=== PATIENT | male | born 1945 ===

== ENCOUNTER 2017-01-16 08:54 | Emergency (ER) | payer OTHER ==
[2017-01-16 09:04] VITALS: RESP 16; TEMP 98
--- NOTE | 2017-01-16 09:48 | C.PDOC ---
History Of Present Illness 71 yo male, presnets with right ear pain x 4 days. pt states started w/o inciting factor. no fevers, cough sore throat or other complaints. Time Seen by Provider: 01/16/17 09:38 Chief Complaint (Nursing): ENT Problem Past Medical History Reviewed: Historical Data, Nursing Documentation, Vital Signs Vital Signs: Last Vital Signs Temp 98 F 01/16/17 09:02 Pulse 63 01/16/17 09:02 Resp 16 01/16/17 09:02 BP 159/56 H 01/16/17 09:02 Pulse Ox 99 01/16/17 09:02 - Medical History PMH: Benign Prostatic Hyperplasia, HTN, Hypercholesterolemia Family History: States: Unknown Family Hx - Social History Hx Tobacco Use: No Hx Alcohol Use: Yes Hx Substance Use: No - Immunization History Hx Tetanus Toxoid Vaccination: Yes Hx Influenza Vaccination: Yes Hx Pneumococcal Vaccination: Yes Review Of Systems ENT: Positive for: Ear Pain (right) Physical Exam - Physical Exam Appears: Well, No Acute Distress Skin: Normal Color, Warm, Dry Eye(s): bilateral: Normal Inspection, PERRL, EOMI Ear(s): Right: TM Dull, Other (external canal mild erythema) Nose: Normal Throat: Normal Neck: Normal Cardiovascular: Rhythm Regular Respiratory: Normal Breath Sounds Gastrointestinal/Abdominal: Normal Exam Back: Normal Inspection Extremity: Normal ROM ED Course And Treatment O2 Sat by Pulse Oximetry: 99 Medical Decision Making Medical Decision Making: om/externa. no mastoid ttp. well appearing. advise outpt f/u Disposition - Disposition Disposition: HOME/ ROUTINE Disposition Time: 09:47 Condition: STABLE Prescriptions: Amoxicillin [Amoxil 500 mg Cap] 500 mg PO TID #21 cap Ciprofloxacin/Hydrocortisone [Cipro Hc Otic Suspension] 3 drop TOP BID #1 drops.susp Instructions: Otitis Media (ED), Otitis Externa (ED) Print Language: BELIZEAN - Clinical Impression Clinical Impression: Otitis media, Otitis externa
[2017-01-16 10:00] VITALS: BP 142/83; PULSE 78; O2SAT 98
== END 2017-01-16 09:59 | disposition home or self-care (01) ==
LOC: C.ER 08:54
DX: H66.91 Otitis media, unspecified, right ear (principal); H60.91 Unspecified otitis externa, right ear

== ENCOUNTER 2018-07-15 11:33 | Emergency (ER) | payer MEDICARE, MEDICAID ==
[2018-07-15 11:44] VITALS: TEMP 97.6
--- NOTE | 2018-07-15 12:06 | C.PDOC ---
History Of Present Illness 73 year old male, whose past medical history includes hypertension and hyperlipidemia (on Xarelto for unknown reason), presents to the ED for evaluation of cough and nasal congestion which began 3 days ago. states he is "sob due to nasal congesiton" in er pt speaking full sentneces in nad, sating well. Patient reports his cough has been productive of brown sputum. He denies fever. Additional history limited secondary to patient being a poor historian. Time Seen by Provider: 07/15/18 11:55 Chief Complaint (Nursing): Shortness Of Breath History Per: Patient History/Exam Limitations: other (poor historian ) Onset/Duration Of Symptoms: Days (3) Current Symptoms Are (Timing): Still Present Exacerbating Factor(s): Coughing Current Respiratory Medications: See Home Med List Associated Symptoms: Productive Cough (brown sputum ). denies: Fever Additional History Per: Patient Past Medical History Reviewed: Historical Data, Nursing Documentation, Vital Signs Vital Signs: Last Vital Signs Temp 97.6 F 07/15/18 11:38 Pulse 72 07/15/18 11:38 Resp 12 07/15/18 12:00 BP 115/58 L 07/15/18 11:38 Pulse Ox 95 07/15/18 12:00 - Medical History PMH: Benign Prostatic Hyperplasia, HTN, Hypercholesterolemia Surgical History: No Surg Hx Family History: States: Unknown Family Hx - Social History Hx Tobacco Use: No Hx Alcohol Use: Yes Hx Substance Use: No - Immunization History Hx Tetanus Toxoid Vaccination: Yes Hx Influenza Vaccination: Yes Hx Pneumococcal Vaccination: Yes Review Of Systems Constitutional: Negative for: Fever, Chills ENT: Positive for: Nose Congestion Respiratory: Positive for: Cough, Shortness of Breath, Sputum (brown ) Physical Exam - Physical Exam Appears: Non-toxic, No Acute Distress Skin: Normal Color, Warm, Dry Head: Atraumatic, Normacephalic Eye(s): bilateral: Normal Inspection Nose: Normal, No Discharge Oral Mucosa: Moist Throat: Normal, No Erythema, No Exudate Neck: Supple Chest: Symmetrical, No Deformity, No Tenderness Cardiovascular: Rhythm Regular, No Murmur Respiratory: Normal Breath Sounds, No Rales, No Rhonchi, No Wheezing Extremity: Normal ROM, Capillary Refill (less than 2 seconds ) Neurological/Psych: Oriented x3, Normal Speech, Normal Cognition ED Course And Treatment - Laboratory Results Result Diagrams: 07/15/18 12:10 07/15/18 12:10 ECG: Interpreted By Me, Viewed By Me ECG Rhythm: Sinus Rhythm Interpretation Of ECG: NSR with PAC's Rate From EC O2 Sat by Pulse Oximetry: 95 (on RA) Pulse Ox Interpretation: Normal Medical Decision Making Medical Decision Making: ro pna/viral syndrome Progress: Bloodwork, CXR, EKG and Flu Swab ordered and reviewed. labs neg. cxr neg. pt sleeping in nad. adivse outpt fu and return precautions Disposition - Disposition Disposition: HOME/ ROUTINE Disposition Time: 13:00 Condition: STABLE Prescriptions: Oxymetazoline 0.05% [Oxymetazoline HCl 30 Ml] 1 spray NS Q8 PRN #1 bottle PRN Reason: Nasal Congestion Instructions: Viral Syndrome (DC) Forms: Gen Discharge Inst Korean, [facility] (Bulgarian) Print Language: NAURUAN - Clinical Impression Clinical Impression: Viral syndrome - Scribe Statement The provider has reviewed the documentation as recorded by the Scribe (Johanny Watts) Provider Attestation: All medical record entries made by the Scribe were at my direction and personally dictated by me. I have reviewed the chart and agree that the record accurately reflects my personal performance of the history, physical exam, medical decision making, and the department course for this patient. I have also personally directed, reviewed, and agree with the discharge instructions and disposition.
[2018-07-15 12:19] LABS: EOS # 0.1 K/uL (0.0-0.7); MEAN CELL VOLUME 88.5 fL (80.0-94.0); NEUT # 7.7 K/uL (1.8-7.0)
[2018-07-15 12:27] LABS: INR 1.3
[2018-07-15 12:28] LABS: BASO % 0.4 % (0.0-2.0); EOS % 1.1 % (0.0-4.0); MONO # 0.6 K/uL (0.0-0.8); MONO % 6.4 % (0.0-10.0); RED CELL DISTRIBUTION WIDTH 14.7 % (11.5-14.5)
[2018-07-15 12:33] LABS: HEMOGLOBIN 13.7 g/dL (12.0-18.0); LYMPH # 1.4 K/uL (1.0-4.3); LYMPH % 14.5 % (20.0-40.0); MEAN CORPUSCULAR HEMOGLOBIN 28.7 pg (27.0-31.0); MEAN CORPUSCULAR HGB CONC 32.4 g/dL (33.0-37.0); MEAN PLATELET VOLUME 11.3 fL (7.2-11.7); NEUT % 77.6 % (50.0-75.0); NRBC % 0.2 % (0.0-2.0); RBC 4.79 Mil/uL (4.40-5.90)
[2018-07-15 12:39] LABS: ALB/GLOB RATIO 1.6 (1.0-2.1); ALBUMIN 4.1 g/dL (3.5-5.0); AST/SGOT 29 U/L (17-59); BLOOD UREA NITROGEN 18 mg/dL (9-20); CALCIUM 9.3 mg/dl (8.6-10.4); GFR NON-AFRICAN AMERICAN > 60
[2018-07-15 12:45] LABS: ALT/SGPT < 6 U/L (21-72)
[2018-07-15 12:46] LABS: B-TYPE NATRIURETIC PEPTIDE 159 pg/mL (0-900)
[2018-07-15 13:03] VITALS: BP 98/58; PULSE 70; RESP 13
--- NOTE | 2018-07-15 13:59 | RAD ---
Date of service: 07/15/2018 PROCEDURE: CHEST RADIOGRAPH, 1 VIEW HISTORY: chest pain COMPARISON: 10/29/2014 FINDINGS: LUNGS: The lungs are well inflated and clear. PLEURA: No pneumothorax or pleural effusion. CARDIOVASCULAR: The heart is normal in size. No aortic atherosclerotic calcifications present. OSSEOUS STRUCTURES: Within normal limits for the patient's age. VISUALIZED UPPER ABDOMEN: Normal. OTHER FINDINGS: None. IMPRESSION: No active pulmonary disease.
[2018-07-15 15:55] VITALS: O2SAT 95
--- NOTE | 2018-07-18 20:15 | CARD ---
APPROVED REPORT Date of service: 07/15/2018 EKG Measurement Heart [id number] <Conclusion> Sinus rhythm with premature atrial complexes Otherwise normal ECG
== END 2018-07-15 13:22 | disposition home or self-care (01) ==
LOC: C.ER 11:33
DX: B34.9 Viral infection, unspecified (principal)